=== PATIENT | female | born 1990 | race Two or more races ===

== ENCOUNTER 2023-12-31 06:19 | Emergency (ER) | payer OTHER ==
[~2023-12-31] VITALS: Ht 167.6 cm; Wt 70.3 kg
[2023-12-31] MEDS ORDERED: DEXAMETHASONE SODIUM PHOSPHATE 4 MG/ML VIAL IV STA (07:06)
[2023-12-31] MEDS ORDERED: CLINDAMYCIN PHOSPHATE 150 MG/ML (900mg) IV STA (07:07)
[2023-12-31] MEDS ORDERED: KETOROLAC TROMETHAMINE 30 MG VIAL IV STA (07:08)
[2023-12-31] MEDS ORDERED: CLINDAMYCIN PHOSPHATE 150 MG/ML (900mg) ONE (07:29)
[2023-12-31] MEDS ORDERED: KETOROLAC TROMETHAMINE 30 MG VIAL ONE (07:30)
[2023-12-31] MEDS ORDERED: DEXAMETHASONE SODIUM PHOSPHATE 4 MG/ML VIAL ONE (07:30)
== END 2023-12-31 08:44 | disposition home or self-care (01) ==
LOC: ER 06:21
DX: L03.818 Cellulitis of other sites (principal); K03.81 Cracked tooth